=== PATIENT | male | born 1935 | race Caucasian/White ===

== ENCOUNTER 2023-01-19 11:44 | Emergency (ER) | payer OTHER, MEDICARE ==
[~2023-01-19] VITALS: Ht 180.3 cm; Wt 96.2 kg
[2023-01-19 11:50] VITALS: BP 130/60
[2023-01-19 12:16] LABS: HEMATOCRIT 39.3 % (42-54); MEAN CORPUSCULAR HEMOGLOBIN 31.8 pg (27.0-33.0); MEAN CORPUSCULAR HGB CONC 33.3 g/dL (32.0-36.0); MEAN CORPUSCULAR VOLUME 95.4 fL (79-99); PLATELET COUNT (AUTO) 183 K/uL (130-400); RED BLOOD CELL COUNT(AUTO) 4.12 MIL/uL (4.50-6.20); RED CELL DISTRIBUTION WIDTH 12.4 % (11.0-15.5); WHITE BLOOD COUNT (AUTO) 5.4 K/uL (4.8-10.8)
[2023-01-19] MEDS ORDERED: ONDANSETRON 4MG INJ IVP ONE (12:30)
[2023-01-19 12:31] LABS: ALBUMIN 3.8 g/dL (3.5-5.0); BASOPHILS % (AUTO) 0.2 % (0.0-5.0); CREATININE 1.8 mg/dL (0.5-1.5); EOSINOPHILS % (AUTO) 3.5 % (0.0-8.0); MONOCYTES % (AUTO) 8.1 % (3.0-13.0); TOTAL PROTEIN, SERUM 6.5 g/dL (6.0-8.3)
== END 2023-01-19 14:06 | disposition home or self-care (01) ==
LOC: EDH 11:44
DX: I12.9 Hypertensive chronic kidney disease with stage 1 through stage 4 chronic kidney disease, or unspecified chronic kidney disease (principal); N18.30 Chronic kidney disease, stage 3 unspecified; R42 Dizziness and giddiness; R51.9 Headache, unspecified; E78.00 Pure hypercholesterolemia, unspecified; K21.9 Gastro-esophageal reflux disease without esophagitis; Z88.8 Allergy status to other drugs, medicaments and biological substances
CPT/HCPCS: 36415; 70450; 71046; 80053; 83880; 84484; 85025; 93005